=== PATIENT | male | born 1950 | race Two or more races ===

== ENCOUNTER 2016-08-19 21:44 | Emergency (ER) | payer OTHER ==
[~2016-08-19] VITALS: Ht 167.6 cm; Wt 76.7 kg
--- NOTE | 2016-08-19 21:47 | NUR ---
PT [facility] TO ER BED 14. PER REPORT, PT LEFT [facility] VN. CALLED 911 AND C/O DEPRESSION. PT DENIES HE IS SUICIDAL. PT IS AAOX3. REQUESTING FOR FOOD. COOPERATIVE TO STAFF. AWAITING MD ADAMS.
--- NOTE | 2016-08-19 23:25 | NUR ---
SEEN AND EVALUATED. D/C HOME IN STABLE CONDITION.
[2016-08-19 23:26] VITALS: BP 128/77
== END 2016-08-19 23:26 | disposition home or self-care (01) ==
LOC: ER 21:46
DX: F32.9 Major depressive disorder, single episode, unspecified (principal)
CPT/HCPCS: 99284; A4606; Z7610